=== PATIENT | male | born 1980 | race Caucasian/White ===

== ENCOUNTER 2017-07-24 18:26 | Emergency (ER) | payer MEDICAID ==
[~2017-07-24] VITALS: Ht 177.8 cm; Wt 78.0 kg
[~2017-07-24 18:26] MED LIST: ACET500C5 PO; FAMO-96 PO
[2017-07-24 18:31] VITALS: Ht 177.8 cm; Wt 78.0 kg
[2017-07-24] MEDS ORDERED: morphine 10 MG INJ IM ONE (21:00)
[2017-07-24] MEDS ORDERED: HYDR-906 PO (21:31)
[2017-07-24 21:50] VITALS: BP 124/83; PULSE 105; RESP 14
--- NOTE | 2017-07-24 22:22 | ERD ---
ER Documentation Chief Complaint Date/Time DATE: 07/24/17 TIME: 22:17 Chief Complaint upper abd pain x 10 days, nausea HPI This patient is a 36-year-old male presenting to the emergency department with complaints of midepigastric pain which is 10 out of 10 and constant and worsening for the past 10 days. He was discharged from [facility] today after staying there for 48 hours. He had a CT scan of the abdomen and pelvis which showed lesions in the liver which is concerning for metastatic cancer. The patient denies nausea, vomiting, diarrhea, fevers, chills, or other symptoms. ROS All systems reviewed and are negative except as per history of present illness. Medications Home Meds Active Scripts Hydrocodone/Acetaminophen ([place] 5-325 Tablet) 1 Each Tablet, 1 TAB PO Q6H Y for PAIN, #20 TAB Prov:MIGEL GUTIERREZ PA-C 07/24/17 Famotidine* (Pepcid*) 20 Mg Tablet, 20 MG PO BID for 30 Days, TAB Prov:NABILA AUGUSTE PA-C 07/14/17 Acetaminophen* (Tylophen*) 500 Mg Capsule, 1 CAP PO Q6H Y for PAIN AND OR ELEVATED TEMP, #20 CAP Prov:NABILA AUGUSTE PA-C 07/14/17 Allergies Allergies: Coded Allergies: No Known Allergy (Unverified , 07/14/17) PMhx/Soc Medical and Surgical Hx: pt denies Surgical Hx History of Surgery: No Anesthesia Reaction: No Hx Neurological Disorder: No Hx Respiratory Disorders: No Hx Cardiac Disorders: No Hx Psychiatric Problems: No Hx Miscellaneous Medical Probl: Yes (gastritis) Hx Alcohol Use: Yes (socially) Hx Substance Use: No Hx Tobacco Use: Yes Smoking Status: Never smoker Physical Exam Vitals Vital Signs Date Time Temp Pulse Resp B/P Pulse Ox O2 Delivery O2 Flow Rate FiO2 07/24/17 21:50 105 14 124/83 95 Room Air 07/24/17 18:31 99.0 110 20 132/71 99 Physical Exam Const: Nontoxic, male who appears to be in pain but no distress. Head: Atraumatic Eyes: Normal Conjunctiva ENT: Normal External Ears, Nose and Mouth. Neck: Full range of motion..~ No meningismus. Resp: Clear to auscultation bilaterally Cardio: Regular rate and rhythm, no murmurs Abd: Soft, tenderness palpation with guarding of the midepigastric region, non distended. Normal bowel sounds. No McBurney's point tenderness Skin: No petechiae or rashes Back: No midline or flank tenderness Ext: No cyanosis, or edema Neur: Awake and alert Psych: Normal Mood and Affect Results 24 hrs Current Medications Medications (Trade) Dose Ordered Sig/Sugar Route PRN Reason Start Time Stop Time Status Last Admin Dose Admin Morphine Sulfate (morphine) 4 mg ONCE ONCE IM 07/24/17 21:00 07/24/17 21:01 DC 07/24/17 20:57 Procedures/MDM 36-year-old male presents to the emergency department with complaints of 10 out of 10 constant, midepigastric pain. Exam shows tenderness to palpation of the midepigastric region with guarding. I reviewed the labs and imaging from [facility] where the patient was just discharged from. CT scan of the abdomen and pelvis was concerning for liver lesions of possible metastatic etiology. I spoke to attending physician, Dr. Donald Charles regarding this patient case and he recommended pain control in the department and close follow- up with hematology/oncology and GI specialist. The patient is here for pain control and I gave him 4 mg of IM morphine. I answered the questions of the patient and his son. The patient understood the discharge plan of diagnosis. I provided him with a prescription for 25 mg [place] tabs to bridge him for severe pain until his appointment with the specialist. The patient is to return immediately for any new or worsening symptoms. He did not require further workup in the department since a full workup was conducted at [facility] and results were scanned into his chart here. The patient is to have very close follow-up with specialist and his primary care physician. Departure Diagnosis: Primary Impression: Epigastric pain Condition: Fair Patient Instructions: Liver Biopsy, Cancer of the Liver Referrals: TARAN ADAMS,NICOLLE DUNBAR,VINNY ROGERS,TYESHA SAMSON,RIO ADAMSON,ELAYNE MAK,AZEB LAI,KHADRA CH,[facility] () Usted se nowak hecho un examen mdico de control que le indica que no est en edelmira condicin que requiera tratamiento urgente en el Departamento de Emergencia. Un estudio ms profundo y el tratamiento de cantu condicin pueden esperar sin ningn riesgo hasta que usted sea atendida/o en el consultorio de cantu mdico o edelmira cl remi. Es responsabilidad suya arreglar edelmira edgar para el seguimiento del leah. MANEJO DE CONDICIONES NO URGENTES EN EL FUTURO 1) Si usted tiene un mdico de atencin primaria: Usted debera llamar a cantu mdico de atencin primaria antes de venir al departamento de emergencia. Despus de las horas de consultorio, cantu doctor o cantu asociado/a est disponible por telfono. El mdico o enfermero de shawn en el servicio telefnico puede asesorarle por nicole medio para atender el problema, o leah contrario se puede programar edelmira edgar. 2) Si usted no tiene un mdico de atencin primaria: Llame al mdico o clnica de referencia que aparece abajo ravi las horas de consultorio para hacer edelmira edgar para que le vean. CLINICAS: [facility] [phone] [facility] [phone] [facility]. [facility] [phone] [facility]. [facility] [phone] [address] [place] [id number] [phone] [facility]. [phone] [address] Additional Instructions: No mas mejor en 2-3 stratton, regresar. Mas peor en 24 horas, regresear rapidamente. Ir a doctor primario in 5-7 stratton. Usar instrucciones cuando jamila medicamento. MIGEL GUTIERREZ PA-C Jul 24, 2017 22:17
== END 2017-07-24 21:51 | disposition home or self-care (01) ==
LOC: FTE 18:26
DX: R10.13 Epigastric pain (principal)
CPT/HCPCS: 96372; J2270; Z7502